=== PATIENT | male | born 1960 | race Caucasian/White ===

== ENCOUNTER 2017-03-27 05:39 | Emergency (ER) | payer MEDICAID ==
[~2017-03-27] VITALS: Ht 165.1 cm; Wt 63.5 kg
[2017-03-27] MEDS ORDERED: ONDANSETRON HCL 4 MG/2 ML VIAL ONE (06:11)
[2017-03-27] MEDS ORDERED: ONDANSETRON HCL 4 MG/2 ML VIAL IV ONE ×2 (06:15→14:00)
[2017-03-27 06:38] LABS: Basophils # (auto) 0 uL; Basophils % (auto) 0.1 % (0.0-2.0); Eosinophils # (auto) 0 uL; Lymphocytes # (auto) 0.7 uL; Monocytes # (auto) 0.6 uL; Neutrophils # (auto) 7.1 uL; White Blood Cell 8.4 10^3/uL (4.4-10.8)
[2017-03-27 06:40] LABS: Eosinophils % (auto) 0.1 % (0.0-7.0); Hemoglobin 15.1 g/dL (13.5-17.5); Lymphocytes % (auto) 7.8 % (10.0-50.0); Mean Corpuscular Hemoglobin 27.7 pg (28.0-32.0); Mean Corpuscular Hgb Conc. 33.5 g/dL (32.0-36.0); Mean Corpuscular Volume 82.7 fL (80.0-100.0); Monocytes % (auto) 7.3 % (0.0-12.0); Neutrophils % (auto) 84.7 % (37.0-80.0); Nucleated Red Blood Cells % 0.3 %; Red Blood Cells 5.44 10^6/uL (4.5-5.90)
[2017-03-27 06:42] LABS: Red Cell Distribution Width 26.5 % (11.8-14.3)
[2017-03-27 06:48] LABS: INR 2.99 (0.9-1.15); Partial Thromboplastin Time 47.1 sec (22.64-33.71); Prothrombin Time 32.9 sec (9.37-12.3)
[2017-03-27 06:57] LABS: Lactic Acid w/Reflex 8.8 mmol/L (0.4-2.0)
[2017-03-27] MEDS ORDERED: PROMETHAZINE HCL 25 MG/ML 1ML IV PRN (07:15)
[2017-03-27] MEDS ORDERED: HYDROmorphone HCL 2 MG/ML VL IV ONE (07:15)
[2017-03-27] MEDS ORDERED: SODIUM CHLORIDE 0.9% 1,000 ML IVB ONE (07:15)
[2017-03-27 07:16] LABS: Anion Gap 17 (5-15); Carbon Dioxide 21 mmol/L (21-32); Chloride 87 mmol/L (98-107); Sodium 125 mmol/L (136-145)
[2017-03-27 07:17] LABS: Alanine Aminotransferase 648 U/L (16-61); Alkaline Phosphatase 138 U/L (45-117); Aspartate Aminotransferase 1868 U/L (15-37); BUN/Creatinine Ratio 15.5; Blood Urea Nitrogen 59 mg/dL (7-18); GFR African American 21 mL/min; GFR Non-African American 18 mL/min
[2017-03-27 07:18] LABS: Albumin 2.6 g/dL (3.4-5.0); Bilirubin, Total 29.1 mg/dL (0.2-1.0); Calcium 8.9 mg/dL (8.5-10.1); Total Protein 7.7 g/dL (6.4-8.2)
[2017-03-27 07:19] LABS: Amylase 202 U/L (25-115); Lipase 237 U/L (73-393)
[2017-03-27] MEDS ORDERED: DEXTROSE 50% SYRINGE 50 ML IV ONE (07:34)
[2017-03-27 07:38] LABS: Potassium 6.3 mmol/L (3.5-5.1)
[2017-03-27 07:39] LABS: Glucose 42 mg/dL (74-106)
[2017-03-27] MEDS ORDERED: SODIUM BICARBONATE 8.4 % INJ 50ML VIAL IV ONE (07:45)
[2017-03-27] MEDS ORDERED: CALCIUM CHL 100MG/ML 1,000 MG in D5W 5% 100 ML IV ONE (07:45)
[2017-03-27] MEDS ORDERED: DEXTROSE (50%) 50ML SYRG IV ONE (07:45)
[2017-03-27] MEDS ORDERED: ALBUTEROL SULF 2.5 MG/0.5ML(0.5%) NEB SOLN NEB ONE (07:45)
[2017-03-27 07:46] LABS: Platelet Count (auto) 39 10^3/uL (140-450)
[2017-03-27] MEDS ORDERED: ALBUTEROL SULF 2.5 MG/0.5ML(0.5%) NEB SOLN ONE (07:51)
[2017-03-27] MEDS ORDERED: SODIUM BICARBONATE 8.4% INJ 50ML SYRINGE ONE (08:00)
[2017-03-27] MEDS ORDERED: SODIUM CHLORIDE 0.9% 1,000 ML IV ONE (10:15)
[2017-03-27 12:47] LABS: BUN/Creatinine Ratio 17.6
[2017-03-27 12:48] LABS: Calcium 9.1 mg/dL (8.5-10.1)
[2017-03-27 12:50] LABS: Potassium 6.1 mmol/L (3.5-5.1)
[2017-03-27] MEDS ORDERED: MORPHINE SULFATE 10 MG/ML INJ 1ML SDV IV ONE (14:00)
[2017-03-27 15:25] VITALS: BP 96/57
== END 2017-03-27 15:30 | disposition home or self-care (01) ==
LOC: ER 05:42
DX: G43.A1 Cyclical vomiting, in migraine, intractable (principal); E87.5 Hyperkalemia; K76.7 Hepatorenal syndrome; K52.9 Noninfective gastroenteritis and colitis, unspecified; C22.0 Liver cell carcinoma; E16.2 Hypoglycemia, unspecified; E78.00 Pure hypercholesterolemia, unspecified; F10.20 Alcohol dependence, uncomplicated; K70.31 Alcoholic cirrhosis of liver with ascites; I10 Essential (primary) hypertension; Z87.891 Personal history of nicotine dependence; Z51.5 Encounter for palliative care
CPT/HCPCS: 36415; 71046; 74176; 80048; 80053; 80320; 82140; 82150; 82962; 83605; 83690; 83735; 84484; 85025; 85610; 85730; 86850; 86900; 86901; 87040; 93005; 94640; 94761; 96361; 96365; 96375; 96376; 99285; J1170; J2270; J2405; J2550; J7030; J7042; J7060